=== PATIENT | male | born 1985 | race Caucasian/White ===

== ENCOUNTER 2016-11-02 19:13 | Emergency (ER) | payer OTHER ==
[~2016-11-02] VITALS: Ht 182.9 cm; Wt 95.6 kg
[2016-11-02 19:18] VITALS: TEMP 36.6; Ht 182.9 cm; Wt 95.6 kg
[2016-11-02] MEDS ORDERED: OXYCODONE HCL IR 5 MG TAB (IMMEDIATE RELEASE) PO STA (19:47)
[2016-11-02] MEDS ORDERED: OXYCODONE IR HOME PACK PO STA (19:47)
[2016-11-02] MEDS ORDERED: CYCLOBENZAPRINE HCL 5 MG TAB PO STA (19:47)
[2016-11-02] MEDS ORDERED: FLEXERIL HOME PACK 10 MG VIAL PO STA (19:55)
--- NOTE | 2016-11-02 20:11 | DIAGNOSTIC IMAGING REPORT ---
L-SPINE MIN 4 VIEWS ROUTINE CLINICAL HISTORY: Heavy lifting, low back pain COMPARISON STUDY: No previous studies for comparison. FINDINGS: There are 5 lumbar type vertebral bodies present. No acute fractures or subluxations are visualized. There is a mild deformity of the superior T12 endplate which is felt to be old. There are surgical clips within the right mid abdomen. IMPRESSION: No fractures or subluxations identified. Electronically signed by: Da Franks M.D. 11/02/2016 8:10 PM Dictated Date/Time: 11/02/2016 8:09 PM
[2016-11-02] MEDS ORDERED: CYCLOBENZAPRINE HCL 10 MG TAB ONE (20:31)
[2016-11-02] MEDS ORDERED: OXYC1TAB3 PO (20:43)
[2016-11-02] MEDS ORDERED: CYCL10TA6 PO (20:43)
--- NOTE | 2016-11-02 20:44 | EMERGENCY ROOM VISIT NOTE ---
History First contact with patient: 19:42 Chief Complaint: BACK PAIN Stated Complaint: SEVERE LOWER BACK PAIN History of Present Illness The patient is a 31 year old male who presents to the Emergency Room via private vehicle with complaints of "severe low back pain". 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 He states that there was pain at that time, however he had difficulty sleeping and when he woke up today the pain was worse. The pain is worse with movement, and he rates the overall pain as a 10/10. He denies any previous back injuries. He denies any chest pain, shortness of breath, abdominal pain, urinary symptoms, fevers, chills, lower extremity weakness, bowel or bladder incontinence, numbness or tingling in the genital region. He is ambulatory. There is no abdominal pain. Review of Systems A complete 6-point Review of Systems was discussed with the patient, with pertinent positives and negatives listed in the History of Present Illness. All remaining Review of Systems questions can be considered negative unless otherwise specified. Past Medical/Surgical History No pertinent past medical history at this time. Family History Diabetes, heart disease, high blood pressure. Social History Smoking Status: Never Smoker Social History: Patient lives with sister. Current/Historical Medications Scheduled Cyclobenzaprine Hcl (Flexeril), 10 MG PO TID Scheduled PRN Oxycodone Ir (Roxicodone Ir), 1-2 TAB PO Q4H PRN for Pain Allergies Coded Allergies: No Known Allergies (Unverified , 11/02/16) Physical Exam Vital Signs Date Time Temp Pulse Resp B/P (MAP) Pulse Ox O2 Delivery O2 Flow Rate FiO2 11/02/16 20:46 61 18 131/58 98 Room Air 11/02/16 19:18 36.6 73 18 129/65 100 Room Air Physical Exam VITAL SIGNS - Vital signs and nursing notes were reviewed. Patient is afebrile , normotensive at 129/65, non-tachycardic and is saturating well on room air 100 %. GENERAL -31-year-old male appearing his stated age who is in no acute distress. Communicates well with provider and answers questions appropriately. SKIN - Without rashes. Skin overlying the back is unremarkable. LUNGS - Chest wall symmetric without accessory muscle use, intercostals retractions, or central cyanosis. Normal vesicular breath sounds CTA B/L. No wheezes, rales, or rhonchi appreciated. CARDIAC - RRR with S1/S2. No murmur, rubs, or gallops appreciated. ABDOMEN - Abdominal contour without pulsations or visible masses. No tenderness , palpable masses, hepatosplenomegaly, or ascites noted. EXTREMITIES - No clubbing or peripheral cyanosis. No pretibial edema present. He is neurovascularly intact in his lower extremity. +5/5 strength noted in UE/ LE bilaterally. MUSCULOSKELETAL: There is tenderness to palpation overlying the superior aspect of the lumbar spinous processes, as well as the paraspinous musculature on the left. Tenderness is most appreciable in the paraspinous musculature. It is worse with range of motion. NEUROLOGIC - Cranial nerves II through XII grossly intact. Sensory intact to light touch throughout. Medical Decision & Procedures ER Provider Diagnostic Interpretation: L-SPINE MIN 4 VIEWS ROUTINE CLINICAL HISTORY: Heavy lifting, low back pain COMPARISON STUDY: No previous studies for comparison. FINDINGS: There are 5 lumbar type vertebral bodies present. No acute fractures or subluxations are visualized. There is a mild deformity of the superior T12 endplate which is felt to be old. There are surgical clips within the right mid abdomen. IMPRESSION: No fractures or subluxations identified. Electronically signed by: Da Franks M.D. 11/02/2016 8:10 PM Dictated Date/Time: 11/02/2016 8:09 PM Medications Administered Medications (Trade) Dose Ordered Sig/Anupam Route Start Time Stop Time Status Last Admin Dose Admin Oxycodone HCl (Roxicodone Immediate Rel 5MG Home Pack) 1 homepack UD STAT PO 11/02/16 19:47 11/02/16 19:49 DC 11/02/16 21:07 1 HOMEPACK Oxycodone HCl (Roxicodone Immediate Rel Tab) 5 mg NOW STAT PO 11/02/16 19:47 11/02/16 19:49 DC 11/02/16 20:29 5 MG Cyclobenzaprine HCl (Flexeril Tab) 5 mg NOW STAT PO 11/02/16 19:47 11/02/16 19:49 DC 11/02/16 20:34 5 MG Cyclobenzaprine HCl (FLEXERIL 10MG Home Pack) 1 homepack UD STAT PO 11/02/16 19:55 11/02/16 19:56 DC 11/02/16 21:07 1 [facility] Medical Decision Patient was seen and evaluated as above. After obtaining a thorough history and physical examination the decision was made to obtain radiographs of the lumbar spine. Results as above. There is a questionable old T12 fracture/ deformity of which I believe is old. There is tenderness overlying this region , however most of this is appreciable in the paraspinous musculature on the left in the lumbar region. He was given oxycodone and Flexeril for his pain. He is reevaluated and his pain was persisting, and he was offered further evaluation and management here in the hospital however declined, stating that he would return if his pain worsened. He would like to try outpatient management first. I do believe this is reasonable. He was given a work excuse regarding his injuries that he may not lift anything heavy over the next few days. He is to follow-up with his family doctor back home in [place]. He states that he'll be going home on Sunday. There are no neurovascular deficits upon examination, and there is no abdominal pain. I suspect he is most likely experiencing an inferior left lumbar spinous musculature strain. Again there is no evidence of emergent cause at this time. He was educated upon worrisome symptoms in which to return, had questions answered prior to discharge, and was discharged home in good condition. He will be given a short term supply of pain medication Flexeril. The [place] drug monitoring system was searched, as well as the [place] site and no red flags were identified. In the evaluation and treatment of this patient the following differential diagnoses entertained: Fracture, strain, sprain, abdominal etiology, cauda equina syndrome, among others. [place] Drug Monitoring Program Search Results: patient reviewed within database, no issues identified Impression Primary Impression: Strain of lumbar region Departure Information Dispostion Home / Self-Care Condition GOOD Prescriptions Cyclobenzaprine Hcl (FLEXERIL) 10 Mg Tab 10 MG PO TID, #15 TAB Prov: Orlando Friedman PA-C 11/02/16 Oxycodone Ir (Roxicodone Ir) 5 Mg Tab 1-2 TAB PO Q4H Y for Pain, #15 TAB For Initial Treatment Prov: Orlando Friedman PA-C 11/02/16 Referrals No Doctor, Assigned (PCP) Patient Instructions My [facility] Additional Instructions You have been treated in the Emergency Department for Back Pain. You have received pain medicine in the emergency department which impairs your ability to operate a vehicle. It is illegal for you to drive after receiving these medicines. You have been prescribed Oxy IR to be used for pain control. This is a narcotic medication. You cannot drive or consume alcohol while on this medicine. This medicine should only be used for pain that cannot be controlled with over-the- counter pain medicines. You have been prescribed Flexeril (cyclobenzaprine) 1 tabs orally, UP TO three times per day. Do NOT exceed 30 mg (3 tabs) per day. Take your first dose at bedtime as it can make you drowsy. Always take all medications as prescribed. For pain control, you can use the following [id number] medicines (if >12 yo): - Regular strength (325mg/tab) Tylenol (acetaminophen) 2 tabs every 4-6 hours as needed. Do not exceed 12 tablets in a 24 hour period. Avoid taking more than 3 grams (3000 mg) of Tylenol per day. This includes any other sources of acetaminophen you may take on a regular basis. - Regular strength (200 mg/tab) Advil (ibuprofen) 1-2 tabs every 4-6 hours as needed. Do not exceed a dose of 3200 mg per day. If this is an acute injury, ice can be applied to the area of pain for the first 3 days to help decrease pain and inflammation. After the first 3 days, a heating pad can be used over the area for continued soothing relief. You should schedule a follow-up appointment in 2-3 days with your Primary Care Provider for further evaluation and treatment of your back pain. Return to the Emergency Department if your current symptoms worsen despite treatment course outlined above, or if you develop any of the following symptoms : intractable pain despite aforementioned treatment course, loss of control of your bowel or bladder, numbness or tingling in your groin, or development of a fever. Please return to the emergency department with any new/concerning symptoms.
[2016-11-02 20:46] VITALS: BP 131/58; PULSE 61; O2SAT 98
== END 2016-11-02 21:09 | disposition home or self-care (01) ==
LOC: C.EDB 19:16 → C.EDD 21:09
DX: S39.012A Strain of muscle, fascia and tendon of lower back, initial encounter (principal); X50.0XXA Overexertion from strenuous movement or load, initial encounter; Y92.59 Other trade areas as the place of occurrence of the external cause; Z83.3 Family history of diabetes mellitus; Z82.49 Family history of ischemic heart disease and other diseases of the circulatory system